=== PATIENT | female | born 1955 | race Caucasian/White ===

== ENCOUNTER → 2017-11-17 11:04 | Outpatient (CLI) | payer OTHER, SELFPAY ==
[2017-11-17 12:54] LABS: Add Manual Diff / Slide Review NO; Basophils Percent Auto 0.9 % (0-2); Eosinophils Percent Auto 2.3 % (2-4); Hematocrit 43.7 % (36-46); Hemoglobin 15.2 g/dL (12.0-16.0); Lymphocytes Percent Auto 34.3 % (25-40); Mean Corpuscular HGB Conc 34.7 % (30-36); Mean Corpuscular Hemoglobin 30.6 PG (26-34); Monocytes Percent Auto 7.6 % (3-14); Neutrophils Absolute Auto 3000 /uL (3000-5900); Neutrophils Percent Auto 54.9 % (50-75); Platelet Count 275 X10^3/uL (150-400); Red Blood Cell Count 4.97 X10^6/uL (4.0-5.2); Red Cell Distribution Width 12.6 % (11.6-14.8); White Blood Cell Count 5.5 X10^3/uL (4.5-11.0)
[2017-11-17 13:02] LABS: BUN Creatinine Ratio 23.8 (6-22); Cholesterol 223 mg/dL (140-199); Estimated Glomerular Filt Rate > 60.0 mL/min (>60); Glucose 93 mg/dL (80-110); HDL Cholesterol 65 mg/dL (40-60); HEMOLYSIS < 15 (0-50); LDL Cholesterol Calculated 141 mg/dL (<100); Potassium 4.1 mmol/L (3.4-5.1); Sodium 142 mmol/L (137-145); Triglycerides 83 mg/dL (35-150)
[2017-11-17 13:52] LABS: TSH w/ Reflex to FT4 1.41 uIU/mL (0.47-4.68)
[2017-11-21 14:25] LABS: Parathyroid Hormone Int 88 pg/mL (14-64)
== END ==
PROVIDERS: Family Provider Physician Assistant; PCP Physician Assistant; Visit Provider Physician Assistant
DX: Z13.29 Encounter for screening for other suspected endocrine disorder (principal); E78.5 Hyperlipidemia, unspecified; E21.3 Hyperparathyroidism, unspecified
CPT/HCPCS: 36415; 80048; 80061; 83970; 84443; 85025

== ENCOUNTER 2017-11-30 01:34 | Emergency (ER) | payer OTHER, SELFPAY ==
[2017-11-30 01:40] VITALS: BP 152/96; PULSE 102; RESP 18; O2SAT 100; BMI 32.8
--- NOTE | 2017-11-30 01:44 | ED.ALLEREA ---
HPI - Allergic Reaction General Chief complaint: Allergic Reaction Stated complaint: ALLERGIC REACTION Time Seen by Provider: 11/30/17 01:44 Source: patient and family Mode of arrival: ambulatory Limitations: no limitations History of Present Illness HPI narrative: Patient is a 62-year-old female presenting with tongue swelling and facial swelling. She took a minute times then immediately started feeling she was swelling and having wheezing. 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 She has no rash no hives no itching. MD complaint: allergic reaction and facial swelling Related Data Previous Rx's Medication Instructions Recorded doxycycline hyclate 100 mg PO BID #14 cap 05/28/16 estradiol-norethindrone acet 0 PO QDAY #3 pac 10/09/17 [Mimvey] epinephrine 0.3 mg IM Q10M PRN #1 each 11/30/17 Allergies Allergy/AdvReac Type Severity Reaction Status Date / Time calcium carbonate [From Tums] Allergy Severe Wheezing Verified 11/30/17 01:51 Penicillins [PENICILLINS] Allergy Unknown Verified 11/30/17 01:51 Sulfa (Sulfonamide Allergy Unknown Verified 11/30/17 01:51 Antibiotics) [SULFA (SULFONAMIDE ANTIBIOTICS)] clindamycin [CLINDAMYCIN] AdvReac Unknown Verified 11/30/17 01:51 Review of Systems Review of Systems All systems reviewed & are unremarkable except as noted in HPI and below Constitutional Denies chills, Denies fever(s), Denies lethargy and Denies weakness ENT Ears, Nose, Mouth, and Throat: Reports system reviewed and no additional complaints, except as docu Cardiovascular Denies chest pain, Denies irregular heart rhythm, Denies lightheadedness, Denies palpitations and Denies orthopnea Respiratory Reports as per HPI Integumentary/Breasts Denies pruritus, Denies erythema, Denies rash and Denies wounds Neurologic Denies weakness Endocrine Denies palpitations [facility] Social History Smoking Status: Never smoker Exam Initial Vital Signs Initial Vital Signs: Vital Signs Pulse Rate 102 H 11/30/17 01:40 Respiratory Rate 18 11/30/17 01:40 Blood Pressure 152/96 H 11/30/17 01:40 Pulse Oximetry 100 11/30/17 01:40 Const General: cooperative and well developed Nutritional Appearance: well nourished Orientation: alert, awake, oriented x3 and not confused HENMT Face and sinus: edema on the left periorbital Mouth: audible dysphonia Neck Neck: full ROM, supple and No anterior neck swelling Resp Effort & Inspection: normal respiratory effort, able to speak in complete sentences, no grunting, no retractions and no stridor Cardio Rate: regular rate Rhythm: regular rhythm Heart Sounds: no click, no gallops, no murmurs and no rubs Pulses: normal peripheral pulses GI Inspection: non-distended Palpation: soft, no hepatosplenomegaly, No guarding, No pulsatile mass and No tender Auscultation: normal bowel sounds Skin General: no rashes or lesions noted, No jaundice and No petechiae Neuro General: alert, awake and oriented x3 Cranial Nerves: CN's II-XI intact bilaterally Course Hospital Course: Patient initially refusing epinephrine due to severe heart palpitations. However she felt like she was getting better oral Benadryl and prednisone were given. She was later re-evaluated and felt like her voice was getting worse and more swollen. She finally agree to epinephrine. Swelling decreased significantly med she was monitor her heart rate never went above 120. Orders Ordered: Discontinued Medications Diphenhydramine HCl (Benadryl) 50 mg PO NOW ONE Stop: 11/30/17 01:46 Last Admin: 11/30/17 01:52 Dose: 50 mg Epinephrine HCl (Adrenalin) 0.3 mg IM NOW ONE Stop: 11/30/17 02:14 Last Admin: 11/30/17 02:15 Dose: 0.3 mg Prednisone (Deltasone) 60 mg PO NOW ONE Stop: 11/30/17 01:46 Last Admin: 11/30/17 01:49 Dose: 60 mg Vital Signs - 8 hr 11/30/17 01:40 11/30/17 02:15 11/30/17 03:00 Pulse Rate 102 H 87 85 Respiratory Rate 18 17 10 L Blood Pressure 152/96 H Blood Pressure [Right Arm] 130/61 H 122/65 H Pulse Oximetry 100 100 99 11/30/17 04:19 Pulse Rate 85 Respiratory Rate 12 Blood Pressure 128/70 H Blood Pressure [Right Arm] Pulse Oximetry 98 Discharge Plan Departure Patient Disposition: Home, Self-Care Clinical Impression: Anaphylaxis Discharge Date/Time: 11/30/17 04:11 Interventions: ED Discharge Assessment Last Done: 06/07/18 04:19 Instructions: Anaphylaxis Activity Restrictions/Additional Instructions: *You have been diagnosed with allergic reaction, anaphylaxis *What to do: May require allergic testing, carry EpiPen with you at all times *Continue to take medications as directed *Follow up with your primary care provider in 2-3 days *Return to ER if you should have increased tongue swelling, difficulty breathing, lip swelling [or] any new, worsening or concerning symptoms Prescriptions: New epinephrine 0.3 mg/0.3 mL auto-injector 0.3 mg IM Q10M PRN (Reason: anaphylaxis) Qty: 1 RF: 0 No Action doxycycline hyclate 100 MG capsule 100 mg PO BID Qty: 14 RF: 0 estradiol-norethindrone acet [Mimvey] 1 MG/0.5 MG tablet PO QDAY Qty: 3 RF: 4 Referrals: Anna Moreland PA-C [Primary Care Provider] -
[2017-11-30] MEDS: predniSONE 20 MG TABLET 60 MG PO (01:49)
[2017-11-30] MEDS: diphenhydrAMINE 50 MG CAPSULE PO (01:52)
[2017-11-30 02:15] VITALS: BP 130/61; PULSE 87; RESP 17; O2SAT 100
[2017-11-30] MEDS: EPINEPHrine 1 MG/ML AMPUL 0.3 MG IM (02:15)
[2017-11-30 03:00] VITALS: BP 122/65; PULSE 85; RESP 10; O2SAT 99
[2017-11-30 04:19] VITALS: BP 128/70; PULSE 85; RESP 12; O2SAT 98
== END 2017-11-30 04:11 | disposition home or self-care (01) ==
PROVIDERS: Emergency Provider Emergency Medicine; Family Provider Physician Assistant; PCP Physician Assistant
DX: T78.2XXA Anaphylactic shock, unspecified, initial encounter (principal)
CPT/HCPCS: 36591; 96372; 99283; J0171

== ENCOUNTER 2018-09-15 11:35 | Emergency (ER) | payer MEDICARE, OTHER, SELFPAY ==
[2018-09-15 11:43] VITALS: BP 131/73; PULSE 102; RESP 20; TEMP 36.2; O2SAT 98
[2018-09-15 12:24] LABS: Influenza A and B by PCR Rapid Negative (Negative)
--- NOTE | 2018-09-15 12:54 | ED.URI ---
HPI - URI/Sore Throat <Elana Miles PA-C - Last Filed: 09/15/18 21:40> General Chief Complaint: Upper Respiratory Symptoms Stated Complaint: high fever 2 days/dizzy/body aches Time Seen by Provider: 09/15/18 12:09 Source: patient Mode of arrival: ambulatory Limitations: no limitations History of Present Illness HPI Narrative: This 63-year-old female comes to ED due to onset of body aches, swollen glands, sore throat and headache on with temperatures up to 103. She has also had chills. She states that temperature does come down if she takes Advil and that also helps with her body aches and sore throat. She denies any earache or sinus pain. She states that it is quite painful to swallow. She denies any cough, wheeze, or dyspnea. She denies any rash or other new complaints on systems review. She denies recent travel or specific exposures. She did have a flu vaccine Related Data Previous Rx's Medication Instructions Recorded doxycycline hyclate 100 mg PO BID #14 cap 05/28/16 estradiol-norethindrone acet 0 PO QDAY #3 pac 10/09/17 [Mimvey] epinephrine 0.3 mg IM Q10M PRN #1 each 11/30/17 lidocaine HCl [Lidocaine Viscous] 10 ml PO Q4HR PRN #150 ml 09/15/18 Allergies Allergy/AdvReac Type Severity Reaction Status Date / Time calcium carbonate [From Tums] Allergy Severe Wheezing Verified 11/30/17 01:51 Penicillins [PENICILLINS] Allergy Unknown Verified 11/30/17 01:51 Sulfa (Sulfonamide Allergy Unknown Verified 11/30/17 01:51 Antibiotics) [SULFA (SULFONAMIDE ANTIBIOTICS)] clindamycin [CLINDAMYCIN] AdvReac Unknown Verified 11/30/17 01:51 Review of Systems <Elana Miles PA-C - Last Filed: 09/15/18 21:40> Review of Systems ROS Unobtainable: All systems reviewed & are unremarkable except as noted in HPI and below PFSH <Elana Miles PA-C - Last Filed: 09/15/18 21:40> Medical History Anxiety disorder (Chronic) Chronic hyperkalemia (Chronic) No pertinent family history (Chronic) Surgical History No pertinent past surgical history (Chronic) Social History Smoking Status: Never smoker Social History Smoking Status: Never smoker Exam <Elana Miles PA-C - Last Filed: 09/15/18 21:40> Narrative Exam Narrative: GENERAL APPEARANCE: Patient sitting comfortably, in no distress. HEAD: No sinus TTP. EYES: PERRL, EOMI. EARS: Normal auditory canals, TMS intact with normal light reflexes. ORAL CAVITY: Normal oropharynx. THROAT: Erythematous without exudate, PND noted NECK/THYROID: Neck supple, full range of motion, shotty anterior cervical lymphadenopathy. LUNGS: Clear to auscultation bilaterally, no cough on exam. HEART: RRR without murmur, nl S1, S2, no S3 or S4. DERMATOLOGIC: No exanthem Initial Vital Signs Initial Vital Signs: Vital Signs Temperature 97.1 F L 09/15/18 11:43 Pulse Rate 102 H 09/15/18 11:43 Respiratory Rate 20 09/15/18 11:43 Blood Pressure 131/73 09/15/18 11:43 Pulse Oximetry 98 09/15/18 11:43 <DO Sandrine Jaime Last Filed: 09/16/18 07:45> Initial Vital Signs Initial Vital Signs: Vital Signs Temperature 97.1 F L 09/15/18 11:43 Pulse Rate 102 H 09/15/18 11:43 Respiratory Rate 20 09/15/18 11:43 Blood Pressure 131/73 09/15/18 11:43 Pulse Oximetry 98 09/15/18 11:43 Course <Elana Miles PA-C - Last Filed: 09/15/18 21:40> Orders Ordered: ED Orders 09/15/18 11:40 FLU A and B [Influenza A and B by PCR Rapid] Stat Vital Signs - 8 hr 09/15/18 11:43 Temperature 97.1 F L Pulse Rate 102 H Respiratory Rate 20 Blood Pressure 131/73 Pulse Oximetry 98 <DO Sandrine Jaime Last Filed: 09/16/18 07:45> Orders Ordered: ED Orders 09/15/18 11:40 FLU A and B [Influenza A and B by PCR Rapid] Stat Vital Signs - 8 hr 09/15/18 11:43 Temperature 97.1 F L Pulse Rate 102 H Respiratory Rate 20 Blood Pressure 131/73 Pulse Oximetry 98 MDM - URI/Sore Throat <Elana Miles PA-C - Last Filed: 09/15/18 21:40> Lab Data Attestation: I reviewed the patient's lab results. Lab Results 09/15/18 Range/Units 11:40 Influenza A & B (PCR) Negative (Negative) Point of Care Testing Rapid Strep A Negative <Jasmin Puentes DO - Last Filed: 09/16/18 07:45> Lab Data Lab Results 09/15/18 Range/Units 11:40 Influenza A & B (PCR) Negative (Negative) Point of Care Testing Rapid Strep A Negative Discharge Plan Departure Patient Disposition: Home Clinical Impression: Upper respiratory infection Qualifiers: URI type: unspecified viral URI Qualified Code(s): J06.9 - Acute upper respiratory infection, unspecified Discharge Date/Time: 09/15/18 13:32 Interventions: ED Discharge Assessment Last Done: 09/15/18 13:32 Instructions: DI for Viral Upper Respiratory Infection -- Adult Activity Restrictions/Additional Instructions: Please return as we talked about if you have acute worsening symptoms, and follow up with your PCP if you are not starting to feel better reports the end of next week. Your test for strep throat and the flu are negative today, and I suspect that you have a virus that is causing your symptoms. Continue your ibuprofen since it is helping with your body aches, sore throat, and fever. I have also sent in a prescription for viscous lidocaine to [facility] for you to help with your throat pain. Prescriptions: New lidocaine HCl [Lidocaine Viscous] 2 % solution 10 ml PO Q4HR PRN (Reason: sore throat) Qty: 150 RF: 0 No Action doxycycline hyclate 100 MG capsule 100 mg PO BID Qty: 14 RF: 0 estradiol-norethindrone acet [Mimvey] 1 MG/0.5 MG tablet PO QDAY Qty: 3 RF: 4 epinephrine 0.3 mg/0.3 mL auto-injector 0.3 mg IM Q10M PRN (Reason: anaphylaxis) Qty: 1 RF: 0 Referrals: Anna Moreland PA-C [Primary Care Provider] - <Jasmin Puentes DO - Last Filed: 09/16/18 07:45> Cosign ED Attending Cosignature Attestation: I was immediately available in the department for consultation. Documentation has been reviewed. I agree with assessment and plan.
== END 2018-09-15 13:32 | disposition home or self-care (01) ==
PROVIDERS: Emergency Medicine; Emergency Provider Internal Medicine; Family Provider Physician Assistant; PCP Physician Assistant
DX: J06.9 Acute upper respiratory infection, unspecified (principal)
CPT/HCPCS: 87400; 87880; 99282

== ENCOUNTER → 2020-09-02 12:21 | Outpatient (CLI) | payer MEDICARE, OTHER, SELFPAY ==
[2020-09-02] MEDS: COVID-19 VACC, Ad26(JANSSEN)/PF 0.5 ML IM (12:43)
== END ==
PROVIDERS: Family Provider Physician Assistant; PCP Physician Assistant; Visit Provider Internal Medicine
DX: Z23 Encounter for immunization (principal)
CPT/HCPCS: 0031A; 91303

== ENCOUNTER → 2020-10-23 11:39 | Outpatient (CLI) | payer MEDICARE, OTHER, SELFPAY ==
[2020-10-23 12:02] LABS: Add Manual Diff / Slide Review NO; Basophils Absolute Auto 100 /uL (0-100); Eosinophils Absolute Auto 100 /uL (0-450); Eosinophils Percent Auto 1.8 % (2-4); Hematocrit 42.1 % (36-46); Hemoglobin 13.6 g/dL (12.0-16.0); Lymphocytes Absolute Auto 1800 /uL (1100-4500); Lymphocytes Percent Auto 35.7 % (25-40); Mean Corpuscular HGB Conc 32.2 % (30-36); Mean Corpuscular Hemoglobin 29.2 PG (26-34); Mean Corpuscular Volume 90.6 fL (80-100); Monocytes Absolute Auto 400 /uL (0-900); Monocytes Percent Auto 7.7 % (3-14); Neutrophils Absolute Auto 2700 /uL (1500-7000); Neutrophils Percent Auto 53.8 % (50-75); Platelet Count 328 X10^3/uL (150-400); Red Blood Cell Count 4.65 X10^6/uL (4.0-5.2); Red Cell Distribution Width 13.2 % (11.6-14.8)
[2020-10-23 12:33] LABS: Alanine Aminotransferase 28 IU/L (<35); Albumin 4.3 g/dL (3.5-5.0); Albumin Globulin Ratio 1.3 (1.0-2.8); Alkaline Phosphatase 50 U/L (38-126); Aspartate Aminotransferase 29 IU/L (14-36); BUN Creatinine Ratio 23.9 (6-22); Bilirubin Total 0.6 mg/dL (0.2-1.3); Blood Urea Nitrogen 17 mg/dL (7-17); Calcium 10.3 mg/dL (8.4-10.2); Carbon Dioxide 28 mmol/L (22-32); Chloride 101 mmol/L (98-107); Cholesterol 309 mg/dL (140-199); Estimated Glomerular Filt Rate > 60.0 mL/min (>60); Globulin 3.2 g/dL (1.7-4.1); Glucose 103 mg/dL (80-110); HDL Cholesterol 73 mg/dL (40-60); HEMOLYSIS < 15 (0-50); LDL Cholesterol Calculated 204 mg/dL (<100); Sodium 136 mmol/L (137-145); Total Protein 7.5 g/dL (6.3-8.2); Triglycerides 159 mg/dL (35-150)
== END ==
PROVIDERS: Family Provider Physician Assistant; PCP Physician Assistant; Referring Provider Physician Assistant; Visit Provider Physician Assistant
DX: E78.2 Mixed hyperlipidemia (principal)
CPT/HCPCS: 36415; 80053; 80061; 85025

== ENCOUNTER → 2020-11-03 12:37 | Outpatient (CLI) | payer MEDICARE, OTHER, SELFPAY ==
[2020-11-03 12:55] LABS: Add Manual Diff / Slide Review NO; Basophils Absolute Auto 0 /uL (0-100); Basophils Percent Auto 0.8 % (0-2); Eosinophils Absolute Auto 100 /uL (0-450); Eosinophils Percent Auto 1.9 % (2-4); Hematocrit 40.6 % (36-46); Hemoglobin 13.5 g/dL (12.0-16.0); Lymphocytes Absolute Auto 1800 /uL (1100-4500); Mean Corpuscular HGB Conc 33.3 % (30-36); Mean Corpuscular Hemoglobin 30.1 PG (26-34); Mean Corpuscular Volume 90.2 fL (80-100); Monocytes Absolute Auto 400 /uL (0-900); Monocytes Percent Auto 9.3 % (3-14); Neutrophils Absolute Auto 2200 /uL (1500-7000); Platelet Count 291 X10^3/uL (150-400); Red Cell Distribution Width 13.2 % (11.6-14.8); White Blood Cell Count 4.6 X10^3/uL (4.5-11.0)
[2020-11-03 13:12] LABS: Alanine Aminotransferase 29 IU/L (<35); Albumin 4.2 g/dL (3.5-5.0); Albumin Globulin Ratio 1.2 (1.0-2.8); Alkaline Phosphatase 46 U/L (38-126); Aspartate Aminotransferase 30 IU/L (14-36); BUN Creatinine Ratio 25.4 (6-22); Bilirubin Total 0.6 mg/dL (0.2-1.3); Blood Urea Nitrogen 17 mg/dL (7-17); Calcium 10.1 mg/dL (8.4-10.2); Carbon Dioxide 28 mmol/L (22-32); Chloride 103 mmol/L (98-107); Cholesterol 304 mg/dL (140-199); Estimated Glomerular Filt Rate > 60.0 mL/min (>60); Globulin 3.4 g/dL (1.7-4.1); Glucose 101 mg/dL (80-110); HDL Cholesterol 60 mg/dL (40-60); HEMOLYSIS < 15 (0-50); LDL Cholesterol Calculated 218 mg/dL (<100); Potassium 4.1 mmol/L (3.4-5.1); Sodium 137 mmol/L (137-145); Total Protein 7.6 g/dL (6.3-8.2); Triglycerides 130 mg/dL (35-150)
== END ==
PROVIDERS: Family Provider Physician Assistant; PCP Physician Assistant; Referring Provider Physician Assistant; Visit Provider Physician Assistant
DX: E78.2 Mixed hyperlipidemia (principal)
CPT/HCPCS: 36415; 80053; 80061; 85025

== ENCOUNTER → 2021-07-04 12:21 | Outpatient (CLI) | payer MEDICARE, OTHER, SELFPAY ==
[2021-07-04 13:40] LABS: COVID19 -Nasal RAPID POSITIVE (Negative)
== END ==
PROVIDERS: Family Provider Physician Assistant; PCP Physician Assistant; Visit Provider Nurse Practitioner Critical Care Medicine
DX: Z20.822 Contact with and (suspected) exposure to COVID-19 (principal)
CPT/HCPCS: 87635